=== PATIENT | female | born 1995 | race Caucasian/White ===

== ENCOUNTER 2021-05-11 22:34 | Inpatient (IN) | payer OTHER ==
[~2021-05-11] VITALS: Ht 165.1 cm; Wt 59.0 kg
[2021-05-11 23:40] LABS: HEMOGLOBIN 10.7 gm/dl (12.3-15.3); RED BLOOD COUNT 3.58 M/UL (4.00-5.10); WHITE BLOOD COUNT 16.8 K/UL (4.5-11.0)
[2021-05-11 23:53] LABS: BUN/CREATININE RATIO 11 (0-10)
[2021-05-12] MEDS ORDERED: SULFAMETHOXAZO473 ML PO (10:29)
[2021-05-12] MEDS ORDERED: IBU-200200 MG PO (10:29)
== END 2021-05-13 15:05 | disposition home or self-care (01) | DRG 871 ==
LOC: ER1 22:34 → CDU 05-12 01:20 → 3 EAST 05-12 01:20 → MED SURG 4 05-12 17:31
PROVIDERS: Family Medicine; Surgery; ADMIT Surgery
PROC: 3E03329 Introduction of Other Anti-infective into Peripheral Vein, Percutaneous Approach (ICD-10-PCS; 2021-05-12)
PROC: 0J9C0ZZ Drainage of Pelvic Region Subcutaneous Tissue and Fascia, Open Approach (ICD-10-PCS; principal; 2021-05-12 12:30)
DX: A41.9 Sepsis, unspecified organism (principal); U07.1 COVID-19; L02.211 Cutaneous abscess of abdominal wall; Z80.0 Family history of malignant neoplasm of digestive organs; Z82.49 Family history of ischemic heart disease and other diseases of the circulatory system; Z87.440 Personal history of urinary (tract) infections
CPT/HCPCS: 80053; 81001; 84703; 85025; 87040; 87070; 87077; 87186; 87205; 96374; 99285; J0690; J1100; J1170; J1885; J2001; J2250; J2270; J2405; J2704; J3010; J7030; J7120; Q9967; U0002